=== PATIENT | female | born 1935 | race Caucasian/White ===

== ENCOUNTER 2017-08-24 21:07 | Inpatient (IN) | payer OTHER ==
[~2017-08-24] VITALS: Ht 170.2 cm; Wt 62.6 kg
--- OUTSIDE RECORDS SUMMARY | 2017-08-24 21:09 | XMS REPORT | Clinical Summary ---
Author Author [facility] Address Unknown Phone Unavailable Care Team Providers Care Steam Conditioning Operator Name Role Phone Robin Miranda MD PCP Allergies Active Allergy Reactions Severity Noted Date Comments Coenzyme Q10 Rash High 08/14/2015 Fish Oil 08/14/2015 Inhaled Anesthetics 08/14/2015 (Halogen Based) Isoniazid 08/14/2015 Lisinopril 08/14/2015 Current Medications Prescription Sig. Disp. Refills Start End Date Status Date aspirin (ECOTRIN) 325 MG Take 1 tablet(s) every Active enteric coated tablet day by oral route. atorvastatin (LIPITOR) 40 Take 1 tablet(s) every Active MG tablet day by oral route. Pp-N1-pfn-vdmf-vai-lpuc-b one daily Active oron (CALTRATE 600+D PLUS MINERALS) 600 mg calcium- 800 unit-40 mg tablet,chewable vigzbade-vxcujsz-yorf-lut 1 tablet daily Active ein (CENTRUM SILVER ULTRA WOMEN'S) tablet cholecalciferol, vitamin Take by oral route. Active D3, (VITAMIN D3) 1,000 unit capsule esomeprazole (NexIUM) 40 Take 1 capsule(s) every Active MG capsule day by oral route. lancets (freestyle) 28 2 daily Active gauge misc levothyroxine sodium Take 1 capsule(s) every Active (TIROSINT) 100 mcg day by oral route. capsule telmisartan (MICARDIS) 80 Take 1 tablet(s) every Active MG tablet day by oral route. cyanocobalamin, vitamin 2 mL. Active B-12, 1,000 mcg/mL kit blood sugar diagnostic 2 daily 200 strip 10 06/22/19 Active strips (FREESTYLE LITE 17 STRIPS) strip test strips estrogens, conjugated, Take 0.45 mg by mouth Active (PREMARIN) 0.45 MG tablet daily. metFORMIN (GLUCOPHAGE) Take 1 tablet (500 mg 180 tablet 1 07/04/19 Active 500 mg tablet total) by mouth 2 (two) 17 times a day. sitaGLIPtin (JANUVIA) 50 Take 1 tablet (50 mg 90 tablet 1 07/04/19 Active MG tablet total) by mouth daily. 17 insulin GLARGINE (LANTUS Inject 24 Units under the 10 pen 1 07/04/19 Active SOLOSTAR) 100 unit/mL skin nightly. 17 injection (pen) oxybutynin XL Take 5 mg by mouth daily. Active (DITROPAN-XL) 5 MG 24 hr tablet Active Problems Problem Noted Date Uncontrolled type 2 diabetes mellitus 08/14/2015 Vitamin D deficiency 08/14/2015 Encounters Date Type Specialty Care Team Description 02/15/2017 [facility] Radiology Bobby Miranda MD Encounter for screening Encounter mammogram for malignant neoplasm of breast 02/15/2017 Ancillary Access Bobby Miranda MD Encounter for screening Orders mammogram for malignant neoplasm of breast 02/03/2017 Transcribe Access Bobby Miranda MD Encounter for screening Orders mammogram for malignant neoplasm of breast (Primary Dx) 01/02/2017 Office Visit Endocrinology Alison Garay MD Uncontrolled diabetes mellitus type 2 without complications, 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); Vitamin D deficiency after 08/23/2016 Social History Tobacco Use Types Packs/Day Years Used Date Never Smoker Alcohol Use Drinks/Week oz/Week Comments Yes 2 Glasses of 1.2 rarely wine Sex Assigned at Date Recorded Not on file Last Filed Vital Signs Vital Sign Reading Time Taken Blood Pressure 101/66 01/02/2017 8:30 AM CDT Pulse 76 01/02/2017 8:30 AM CDT Temperature 36.4 C (97.5 F) 01/02/2017 8:30 AM CDT Respiratory Rate - - Oxygen Saturation 97% 01/02/2017 8:30 AM CDT Inhaled Oxygen - - Concentration Weight 63.5 kg (140 lb) 01/02/2017 8:30 AM CDT Height 166.4 cm (5' 5.5") 01/02/2017 8:30 AM CDT Body Mass Index 22.94 01/02/2017 8:30 AM CDT Plan of Treatment Health Maintenance Due Date Last Done Comments FOOT EXAM 1946 OPHTHALMOLOGY EXAM 1946 ZOSTER VACCINE 1996 PNEUMOCOCCAL 2001 POLYSACCHARIDE VACCINE AGE 65 AND OVER PNEUMOCOCCAL-13 2001 URINE MICROALBUMIN 07/04/2017 07/04/2016 INFLUENZA VACCINE 12/13/2017 Results * Mammo Screening w Cad Bilateral (02/15/2017 10:29 AM) Specimen Performing Laboratory [facility] [address] [place] [address] Narrative EXAMINATION: MAMMO SCREENING W CAD BILATERAL COMPARISON:07/06/2015-04/20/2012 TECHNIQUE: Bilateral digital screening mammography was performed and interpreted using computer-assisted detection. CLINICAL HISTORY: Screening mammogram.The patient has no current breast complaints.The patient reports current estrogen hormone replacement therapy use for the last 20 years FINDINGS: The breasts are heterogeneously dense, which may obscure small masses. There are stable benign-appearing calcified lesions in both breasts. There are vascular calcifications in both breasts. A scar marker overlies the left breast. No significant masses, calcifications, or other findings are seen in either breast.There has been no significant interval change. IMPRESSION: There is no mammographic evidence of malignancy. Recommend annual screening mammogram as per ACR guidelines and correlation with physical examination. BI-RADS 2:BENIGN This facility is accredited by the [employer] for Mammography. A negative x-ray report should not delay biopsy if a dominant or clinically suspicious mass is present.Not all cancers are identified by x-ray. DWS01 * POC glycosylated hemoglobin (Hb A1C) (01/02/2017 8:50 AM) Component Value Ref Range POC Hemoglobin A1C 6.1 % Specimen Performing Laboratory Blood after 08/23/2016 Insurance Payer Benefit Subscriber ID Type Phone Address Plan / Group [employer] xxxxxxxxxxx
[2017-08-24] MEDS ORDERED: SODIUM CHLORIDE 0.9% 500ML 500 ML IV STA (21:36)
[2017-08-24] MEDS ORDERED: ONDANSETRON HCL INJ 2 MG/ML VIAL IV STA (21:36)
[2017-08-24 21:57] LABS: BASOPHILS # (AUTO) 0.1 (0.0-0.1); BASOPHILS % 0.3 % (0.0-1.0); EOSINOPHILS % 0.2 % (0.0-6.0); HEMATOCRIT 42.8 % (34.2-44.1); HEMOGLOBIN 14.9 g/dL (12.0-16.0); LYMPHOCYTES # (AUTO) 1.8 (1.0-3.2); LYMPHOCYTES % 10.6 % (18.0-39.1); MEAN CORPUSCULAR HEMOGLOBIN 30.3 pg (28-32); MEAN CORPUSCULAR HGB CONC 34.8 g/dL (31-35); MEAN CORPUSCULAR VOLUME 87.2 fL (81-99); MONOCYTES # (AUTO) 0.7 (0.2-0.8); MONOCYTES % 3.8 % (4.4-11.3); NEUTROPHILS # (AUTO) 14.5 (2.1-6.9); NEUTROPHILS % 84.6 % (38.7-80.0); PLATELET COUNT 314 x10e3/uL (140-360); RED BLOOD COUNT 4.91 x10e6/uL (3.6-5.1); RED CELL DISTRIBUTION WIDTH 12.6 % (11.7-14.4)
[2017-08-24 21:58] LABS: CLARITY,URINE CLOUDY (CLEAR); COLOR,URINE YELLOW (YELLOW); KETONES,URINE TRACE (NEGATIVE); LEUKOCYTE ESTERASE ,URINE 2+ (NEGATIVE); NITRITE,URINE NEGATIVE (NEGATIVE); PROTEIN,URINE DIPSTICK TRACE (NEGATIVE)
[2017-08-24 21:59] LABS: BILIRUBIN,URINE NEGATIVE (NEGATIVE); URINE UROBILINOGEN 0.2 mg/dL (0.2 - 1)
[2017-08-24] MEDS ORDERED: DIATRIZOATE MEGL/DIATRIZOA SOD 30 ML BTL PO ONE (21:59)
[2017-08-24 22:09] LABS: BACTERIA,URINE MANY /HPF
[2017-08-24 22:10] LABS: AMORPHOUS SEDIMENT,URINE FEW (FEW)
[2017-08-24 22:13] LABS: ALANINE AMINOTRANSFERASE 22 IU/L (0-55); ALBUMIN 4.1 g/dL (3.5-5.0); ALKALINE PHOSPHATASE 87 IU/L (40-150); AMYLASE 51 U/L (25-125); ANION GAP 25.2 mmol/L (8-16); BLOOD UREA NITROGEN 9 mg/dL (7-26); BUN/CREATININE RATIO 8 (6-25); CALCIUM 10.6 mg/dL (8.4-10.2); CARBON DIOXIDE 15 mmol/L (22-29); CHLORIDE 98 mmol/L (98-107); CREATINE KINASE 55 IU/L (29-168); CREATININE, SERUM 1.18 mg/dL (0.57-1.11); EST GLOMERULAR FILTRATION RATE 44 ML/MIN (60-); GLUCOSE 214 mg/dL (74-118); LIPASE 17 U/L (8-78); POTASSIUM 4.2 mmol/L (3.5-5.1); SODIUM 134 mmol/L (136-145)
--- NOTE | 2017-08-24 22:16 | Diagnostic Imaging Report ---
EXAM: CHEST SINGLE (PORTABLE), AP 1 view INDICATION: Weakness, vomiting, abdominal pain COMPARISON: None FINDINGS: LINES/TUBES: None LUNGS: No consolidations or edema. PLEURA: No effusions or pneumothorax. HEART AND MEDIASTINUM: Normal size and contour. Median sternotomy wires and mediastinal clips. BONES AND SOFT TISSUES: No acute findings. Rounded fat density projected over the right hemithorax is likely a fat-containing Bochdalek hernia. Chronic deformity of the left proximal humerus. IMPRESSION: No acute thoracic abnormality. Signed by: Dr. Lisa Wolfe M.D. on 08/24/2017 10:12 PM
[2017-08-24] MEDS ORDERED: JANUVIA100 MG PO (22:21)
[2017-08-24] MEDS ORDERED: LANTUS 3ML100 UNITS/ SC (22:21)
[2017-08-24] MEDS ORDERED: ASPIRIN325 MG PO (22:21)
[2017-08-24] MEDS ORDERED: OXYBUTYNIN CHLOR5 M1 PO (22:21)
[2017-08-24] MEDS ORDERED: MICARDIS40 MG PO (22:21)
[2017-08-24] MEDS ORDERED: VITAMIN D1000 UNI1 PO (22:21)
[2017-08-24] MEDS ORDERED: SYNTHROID100 MCG PO (22:21)
[2017-08-24] MEDS ORDERED: ATORVASTATIN CA40 MG PO (22:21)
[2017-08-24] MEDS ORDERED: PREMARIN0.625 MG PO (22:21)
[2017-08-24] MEDS ORDERED: CENTRUM SILVER1 EAC3 PO (22:21)
[2017-08-24] MEDS ORDERED: CALTRATE PLUS1 EACH PO (22:21)
[2017-08-24] MEDS ORDERED: SODIUM CHLORIDE 0.9% 500ML 500 ML IV ONE (22:45)
[2017-08-24] MEDS ORDERED: SODIUM CHLORIDE 0.9% 50ML 50 ML ONE (22:51)
[2017-08-24] MEDS ORDERED: IOPAMIDOL 370 MG/ML 200 ML INFUS..BTL INJ ONE (22:52)
--- NOTE | 2017-08-24 23:34 | Diagnostic Imaging Report ---
EXAM: CT ABDOMEN AND PELVIS with IV CONTRAST DATE: 08/24/2017 9:36 PM Time stamp on Exam: 2300 hours INDICATION: Abdominal pain COMPARISON: None TECHNIQUE: The abdomen and pelvis were scanned using a multidetector helical scanner. Coronal and sagittal reformations were obtained. Routine protocol performed. IV Contrast: 100 cc Isovue-370 Oral Contrast: Gastrografin CTDIvol has been reviewed. It is below the limits set by the Radiation Protocol Committee (RPC). FINDINGS: LOWER THORAX: No consolidations. Left fat-containing Bochdalek hernia. LIVER: No masses BILIARY: The gallbladder is unremarkable. No ductal dilation. SPLEEN: No masses PANCREAS: No masses ADRENALS: No nodules KIDNEYS: Symmetric perfusion. No enhancing masses. No hydronephrosis. GI TRACT: No distention, wall thickening or evidence of obstruction. Small sliding hiatal hernia. Large amount of retained stool particularly in the rectosigmoid colon. The colon is very redundant with the cecum in the right upper quadrant of the abdomen. VESSELS: Mild PERITONEUM/RETROPERITONEUM: No free air or fluid LYMPH NODES: No lymphadenopathy REPRODUCTIVE ORGANS: The uterus and ovaries are not well visualized. BLADDER: Latham catheter and air within the bladder. Surgical clips anterior to the bladder. SOFT TISSUES: Unremarkable BONES: No suspicious bone lesions. IMPRESSION: Large amount of retained stool predominantly in the rectosigmoid colon. No evidence of bowel obstruction. Signed by: Dr. Lisa Wolfe M.D. on 08/24/2017 11:31 PM
[2017-08-25] VITALS (10 sets, daily range): BP systolic 81–109; BP diastolic 40–61
[2017-08-25] MEDS ORDERED: ONDANSETRON HCL INJ 2 MG/ML VIAL IV STA (00:03)
[2017-08-25] MEDS ORDERED: ONDANSETRON HCL INJ 2 MG/ML VIAL ONE (00:05)
--- OUTSIDE RECORDS SUMMARY | 2017-08-25 00:32 | XMS REPORT | Clinical Summary ---
Author Author [facility] Organization [facility] Address Unknown Phone Unavailable Care Team Providers Care Information Analyst Name Role Phone Robin Miranda MD PCP [...] Active MG tablet day by oral route. Sj-Z2-egb-tnxj-qdq-sgee-b one daily Active oron (CALTRATE 600+D PLUS MINERALS) 600 mg calcium- 800 unit-40 mg tablet,chewable lklcvbao-yuxawjm-zvtg-lut 1 tablet daily Active ein (CENTRUM SILVER [...] Date Type Specialty Care Team Description 02/15/2017 [facility] Radiology Bobby Miranda MD Encounter for screening Encounter mammogram for malignant neoplasm of breast 02/15/2017 Ancillary Access Bobby Miranda MD Encounter for screening Orders mammogram for malignant neoplasm of breast 02/03/2017 Transcribe Access Bobby Miranda MD Encounter for screening Orders mammogram for malignant neoplasm of breast (Primary Dx) 01/02/2017 Office Visit Endocrinology Alison Garay MD Uncontrolled diabetes mellitus type 2 without 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 A negative x-ray report should not delay biopsy if a dominant or clinically suspicious mass is present.Not all cancers are identified by x-ray. DWS01 * POC glycosylated hemoglobin (Hb A1C) (01/02/2017 8:50 AM) Component Value Ref Range POC Hemoglobin A1C 6.1 % Specimen Performing Laboratory Blood after 08/24/2016 Insurance Payer Benefit Subscriber ID Type Phone Address Plan / Group [facility] xxxxxxxxxxx
--- OUTSIDE RECORDS SUMMARY | 2017-08-25 00:32 | XMS REPORT ---
Author Author [facility] Address Unknown Phone Unavailable Care Team Providers Care Screen Handler Name Role Phone DANIEL BULLARD Unavailable Unavailable Problems This patient has no known problems. Allergies, Adverse Reactions, Alerts This patient has no known allergies or adverse reactions. Medications This patient has no known medications. Results Test Description Test Time Test Comments Text Results Atomic Results Result Comments CHEST SINGLE (PORTABLE) [place] [address] Patient Name: IDALMIS HURST MR #: [id number] : 1935 Age/Sex: 81/F Req #: [id number] Adm Physician: Ordered by: DANIEL BULLARD MD Report #: [id number] Location: ER Room/Bed: Procedure: [id number] DX/CHEST SINGLE (PORTABLE) Exam Date: 08/24/17 Exam Time: 2200 REPORT STATUS: Signed EXAM: CHEST SINGLE (PORTABLE), AP 1 view INDICATION: Weakness, vomiting, abdominal pain COMPARISON: None FINDINGS: LINES/TUBES: None LUNGS: No consolidations or edema. PLEURA: No effusions or pneumothorax. HEART AND MEDIASTINUM: Normal size and contour. Median sternotomy wires and mediastinal clips. BONES AND SOFT TISSUES: No acute findings. Rounded fat density projected over the right hemithorax is likely a fat-containing Bochdalek hernia. Chronic deformity of the left proximal humerus. IMPRESSION: No acute thoracic abnormality. Signed by: Dr. Juanjo Wolfe M.D. on 08/24/2017 10:12 PM Dictated By: JUANJO WOLFE MD 11 Transcribed By: CLEMENTE on 08/24/172211 COPY TO: DANIEL BULLARD MD CT ABDOMEN/PELVIS W [place] [address] Patient Name: IDALMIS HURST MR #: [id number] : 1935 Age/Sex: 81/F Req #: [id number] Adm Physician: Ordered by: DANIEL BULLARD MD Report #: [id number] Location: ER Room/Bed: Procedure: [id number] CT/CT ABDOMEN/PELVIS W Exam Date: 08/24/17 Exam Time: 2300 REPORT STATUS: Signed EXAM: CT ABDOMEN AND PELVIS with IV CONTRAST DATE: 08/24/2017 9:36 PM Time stamp on Exam: 2300 hours INDICATION: Abdominal pain COMPARISON: None TECHNIQUE: The abdomen and pelvis were scanned using a multidetector helical scanner. Coronal and sagittal reformations were obtained. Routine protocol performed. IV Contrast : 100 cc Isovue-370 Oral Contrast: Gastrografin CTDIvol has been reviewed. It is below the limits set by the Radiation Protocol Committee (RPC). FINDINGS: LOWER THORAX: No consolidations. Left fat-containing Bochdalek hernia. LIVER: No masses BILIARY: The gallbladder is unremarkable. No ductal dilation. SPLEEN: No masses PANCREAS: No masses ADRENALS: No nodules KIDNEYS: Symmetric perfusion. No enhancing masses. No hydronephrosis. GI TRACT: No distention, wall thickening or evidence of obstruction. Small sliding hiatal hernia. Large amount of retained stool particularly in the rectosigmoid colon. The colon is very redundant with the cecum in the right upper quadrant of the abdomen. VESSELS: Mild PERITONEUM/RETROPERITONEUM: No free air or fluid LYMPH NODES: No lymphadenopathy REPRODUCTIVE ORGANS: The uterus and ovaries are not well visualized. BLADDER: Latham catheter and air within the bladder. Surgical clips anterior to the bladder. SOFT TISSUES: Unremarkable BONES: No suspicious bone lesions. IMPRESSION: Large amount of retained stool predominantly in the rectosigmoid colon. No evidence of bowel obstruction. Signed by: Dr. Juanjo Wolfe M.D. on 08/24/2017 11:31 PM Dictated By: JUANJO WOLFE MD 2331 Transcribed By: CLEMENTE on 08/24/17 2331 COPY TO: DANIEL BULLARD MD
[2017-08-25] MEDS: SODIUM CHLORIDE 0.9% 1000ML 1,000 ML IV SCH ×3 (00:51→17:15)
[2017-08-25] MEDS: METRONIDAZOLE 500MG/NS 100ML 100 ML IV SCH ×4 (00:51→19:01)
[2017-08-25] MEDS: PIPER-TAZ 3.375 GM 3.375 GM/100 ML BAG IV SCH ×4 (02:10→22:34)
[2017-08-25] MEDS: ONDANSETRON HCL INJ 2 MG/ML VIAL IV PRN ×2 (06:35→14:10)
[2017-08-25] MEDS: INSULIN REGULAR, HUMAN 100 UNIT/1 ML 3ML VIAL SQ SCH ×4 (07:30→20:30)
[2017-08-25] MEDS ORDERED: ALBUTEROL/IPRATROPIUM 3 ML NEB ONE (10:48)
[2017-08-25] MEDS ORDERED: LACTULOSE SYRUP 20 GM/30 ML UDC PO PRN (14:45)
[2017-08-25] MEDS: INSULIN DETEMIR 100 UNIT/ML PEN SQ SCH ×2 (20:32→20:43)
[2017-08-25] MEDS: LACTULOSE SYRUP 20 GM/30 ML UDC PO SCH (20:39)
[2017-08-26] MEDS: SODIUM CHLORIDE 0.9% 1000ML 1,000 ML IV SCH ×4 (00:23→16:23)
[2017-08-26] MEDS: METRONIDAZOLE 500MG/NS 100ML 100 ML IV SCH ×4 (01:37→17:00)
[2017-08-26 04:23] VITALS: BP 88/44
[2017-08-26] MEDS: LEVOTHYROXINE SODIUM 100 MCG TAB PO SCH (06:08)
[2017-08-26 06:35] LABS: BASOPHILS # (AUTO) 0.1 (0.0-0.1); BASOPHILS % 0.5 % (0.0-1.0); EOSINOPHILS # (AUTO) 0.1 (0.0-0.4); EOSINOPHILS % 0.7 % (0.0-6.0); HEMATOCRIT 37.8 % (34.2-44.1); HEMOGLOBIN 12.2 g/dL (12.0-16.0); LYMPHOCYTES # (AUTO) 2.6 (1.0-3.2); MEAN CORPUSCULAR HEMOGLOBIN 30.3 pg (28-32); MEAN CORPUSCULAR HGB CONC 32.3 g/dL (31-35); MEAN CORPUSCULAR VOLUME 93.8 fL (81-99); MONOCYTES # (AUTO) 1.2 (0.2-0.8); MONOCYTES % 9.9 % (4.4-11.3); NEUTROPHILS # (AUTO) 8.2 (2.1-6.9); NEUTROPHILS % 67.6 % (38.7-80.0); PLATELET COUNT 194 x10e3/uL (140-360); RED BLOOD COUNT 4.03 x10e6/uL (3.6-5.1); RED CELL DISTRIBUTION WIDTH 13.8 % (11.7-14.4)
[2017-08-26] MEDS: PIPER-TAZ 3.375 GM 3.375 GM/100 ML BAG IV SCH ×3 (06:44→22:27)
[2017-08-26 06:49] LABS: ALBUMIN 2.9 g/dL (3.5-5.0); ANION GAP 14.7 mmol/L (8-16); CREATININE, SERUM 1.1 mg/dL (0.57-1.11)
[2017-08-26 07:00] VITALS: BP 97/45
[2017-08-26] MEDS: INSULIN REGULAR, HUMAN 100 UNIT/1 ML 3ML VIAL SQ SCH ×4 (07:30→20:50)
[2017-08-26 07:31] LABS: CALCIUM 7.6 mg/dL (8.4-10.2); POTASSIUM 2.7 mmol/L (3.5-5.1)
[2017-08-26] MEDS: LACTULOSE SYRUP 20 GM/30 ML UDC PO SCH ×2 (09:00→21:00)
[2017-08-26] MEDS: ESTROGEN PO SCH (09:00)
[2017-08-26] MEDS ORDERED: ESTROGENS CONJUGATED 0.625 MG TAB PO SCH (09:00)
[2017-08-26] MEDS ORDERED: POTASSIUM CHLORIDE 20MEQ/15ML UDC PO SCH (10:09)
[2017-08-26] MEDS: ASPIRIN 325 MG TAB PO SCH (10:21)
[2017-08-26] MEDS: CHOLECALCIFEROL 1,000 UNIT TAB PO SCH (10:21)
[2017-08-26] MEDS: OXYBUTYNIN CHLORIDE XL 5 MG TAB PO SCH (10:21)
[2017-08-26] MEDS: SITAGLIPTIN 100 MG TAB PO SCH (10:21)
[2017-08-26] MEDS: TELMISARTAN 40 MG TAB PO SCH (10:21)
[2017-08-26 10:53] VITALS: BP 97/45
[2017-08-26] MEDS: POTASSIUM CHLORIDE 20MEQ/15ML UDC NG SCH ×2 (12:18→14:50)
[2017-08-26] MEDS: POTASSIUM CHLORIDE 20MEQ/15ML UDC PO SCH ×5 (14:49→22:27)
[2017-08-26 16:33] VITALS: BP 98/50
[2017-08-26 20:00] VITALS: BP 92/65
[2017-08-26 20:57] VITALS: BP 92/65
[2017-08-26] MEDS: INSULIN DETEMIR 100 UNIT/ML PEN SQ SCH (21:00)
[2017-08-27] MEDS: METRONIDAZOLE 500MG/NS 100ML 100 ML IV SCH ×4 (00:10→17:01)
[2017-08-27] MEDS: POTASSIUM CHLORIDE 20MEQ/15ML UDC PO SCH (00:10)
[2017-08-27 00:39] VITALS: BP 88/46
[2017-08-27] MEDS: SODIUM CHLORIDE 0.9% 1000ML 1,000 ML IV SCH ×3 (03:55→16:23)
[2017-08-27 04:00] VITALS: BP 107/53
[2017-08-27] MEDS: PIPER-TAZ 3.375 GM 3.375 GM/100 ML BAG IV SCH ×3 (06:15→22:10)
[2017-08-27] MEDS: LEVOTHYROXINE SODIUM 100 MCG TAB PO SCH (06:15)
[2017-08-27 08:00] VITALS: BP 117/56
[2017-08-27] MEDS: LACTULOSE SYRUP 20 GM/30 ML UDC PO SCH ×2 (08:14→21:00)
[2017-08-27] MEDS: SITAGLIPTIN 100 MG TAB PO SCH (08:26)
[2017-08-27] MEDS: ASPIRIN 325 MG TAB PO SCH (08:26)
[2017-08-27] MEDS: OXYBUTYNIN CHLORIDE XL 5 MG TAB PO SCH (08:26)
[2017-08-27] MEDS: CHOLECALCIFEROL 1,000 UNIT TAB PO SCH (08:27)
[2017-08-27] MEDS: TELMISARTAN 40 MG TAB PO SCH (08:27)
[2017-08-27] MEDS: ESTROGEN PO SCH (08:27)
[2017-08-27] MEDS: INSULIN REGULAR, HUMAN 100 UNIT/1 ML 3ML VIAL SQ SCH ×5 (08:30→21:30)
[2017-08-27 12:00] VITALS: BP 105/58
[2017-08-27 12:57] LABS: BLOOD UREA NITROGEN 12 mg/dL (7-26); BUN/CREATININE RATIO 14 (6-25); CALCIUM 7.7 mg/dL (8.4-10.2); CARBON DIOXIDE 17 mmol/L (22-29); CHLORIDE 109 mmol/L (98-107); CREATININE, SERUM 0.87 mg/dL (0.57-1.11); EST GLOMERULAR FILTRATION RATE > 60 ML/MIN (60-); GLUCOSE 148 mg/dL (74-118); SODIUM 133 mmol/L (136-145)
[2017-08-27 16:00] VITALS: BP 90/53
--- NOTE | 2017-08-27 16:07 | Consultation ---
DATE OF CONSULTATION: August 27, 2017 NEUROLOGY CONSULTATION HISTORY OF PRESENT ILLNESS: Ms. Zhou is an 81-year-old right hand dominant woman with past medical history significant for hyperlipidemia, diabetes mellitus type 2, and coronary artery disease, who presented to [facility] on August 24, 2017, with abdominal pain, nausea, and vomiting. The patient was admitted to [facility] for further evaluation and treatment of urinary tract infection and sepsis. During her hospitalization, the patient endorsed an unsteady gait with multiple falls. A neurology consultation was ordered for further evaluation. Ms. Zhou reports experiencing poor balance and an unsteady gait for the past 4 to 5 years. Due to her unsteady gait, the patient has experienced multiple falls with several of those falls resulting in fractures of different bones. The patient does not endorse dizziness. She does not report any lightheadedness or a vertiginous sensation. The patient endorses numbness over the soles and dorsa of both feet. She endorses tingling over the toes of both feet. Ms. Zhou is not certain if the numbness and tingling are constant or if they occur intermittently. Ms. Zhou refers to these symptoms as her "diabetic neuropathy." However, the patient has never been formally diagnosed with diabetic polyneuropathy. The patient does have a history of diabetes mellitus type 2. Her son, who is present at the bedside, reports her diabetes is well controlled. The patient does not endorse current or prior heavy alcohol use. The patient does not endorse prior treatment with chemotherapeutic agents. There is no known family history of neuromuscular disease. REVIEW OF SYSTEMS: Weight loss, decreased hearing especially of the left ear, abdominal pain, nausea, vomiting, inappropriate sadness and anxiety, urinary frequency, generalized weakness, numbness and tingling of the feet, impaired balance, and unsteady gait. Otherwise the 12-point review of systems is negative. PAST MEDICAL HISTORY: Hyperlipidemia, diabetes mellitus type 2, coronary artery disease, thyroid disease, prior history of migraines. PAST SURGICAL HISTORY: Three-vessel CABG, repair of fractured left ulna, repair of fractured nose, cholecystectomy, total vaginal hysterectomy, section, cataract surgery. HOSPITALIZATIONS: Surgeries and procedures as listed, childbirth times 5, multiple hospitalizations for falls. FAMILY HISTORY: The patient's paternal and maternal grandparents are . Their medical histories are unknown. The patient's father is . He had a history of pancreatic cancer and alcoholism. The patient's mother is . She had a history of atrial fibrillation, multiple strokes, and alcoholism. The patient has 1 brother who is . He had alcoholic cirrhosis and cancer. The patient's sister is . Ms. Zhou has 5 sons. The eldest son has diabetes mellitus. The second eldest son has diabetes mellitus, coronary artery disease status post myocardial infarction. Another son had alcoholic cirrhosis and is status post liver transplant. The remaining 2 sons are healthy. SOCIAL HISTORY: The patient is a . 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 The patient does not report current or prior tobacco or recreational drug use. Ms. Zhou rarely drinks a glass of wine. HOME MEDICATIONS: Aspirin 325 mg by mouth daily, atorvastatin 40 mg by mouth at bedtime daily, Caltrate 1 tab by mouth daily, vitamin D3 1000 units by mouth daily, Premarin 0.4 mg by mouth daily, Lantus 25 units subcutaneously at bedtime daily, levothyroxine 100 mcg by mouth every morning, multivitamin 1 tab by mouth daily, oxybutynin 5 mg by mouth daily, Januvia 50 mg by mouth daily, Micardis 80 mg by mouth daily. ALLERGIES: FISH OIL CAPSULES CAUSE RASH. MS. ZHOU HAS LISTED ALLERGIES TO COENZYME Q10, ISONIAZID, AND LISINOPRIL WELL. NO KNOWN FOOD ALLERGIES. NO KNOWN ALLERGY TO LATEX. NO KNOWN ALLERGY TO IODINE OR OTHER CONTRAST MATERIALS. PHYSICAL EXAMINATION: VITAL SIGNS: Height 67 inches, weight 138 lbs. BMI 21.6 kilograms per meter squared. BP 105/58 mmHg, pulse 62 beats per minute, respiratory rate 20 breaths per minute, oxygen saturation 100% on room air. GENERAL: The patient is awake and alert, does not appear distressed. HEENT: Normocephalic, atraumatic. Pupils are surgical. Moist mucous membranes. NECK: Supple. No appreciable thyromegaly. No appreciable carotid bruits. CARDIOVASCULAR: S1, S2. Regular rate and rhythm. No murmurs, rubs, or gallops. RESPIRATORY: Clear to auscultation bilaterally. No wheezes, rhonchi, or rales. EXTREMITIES: The skin is warm and dry. No clubbing, cyanosis, or edema. The posterior tibial and dorsalis pedis pulses are 2+ and symmetric. SKIN: No rashes or lesions. NEUROLOGIC Memory/Attention: The patient is awake and alert, oriented to person, place, time, and situation. Cranial Nerves: Cranial nerve I--Not tested. Cranial nerves II, III, IV, and --Pupils are surgical, extraocular movements intact, no nystagmus. Cranial nerve V--Sensation to light touch and pinprick is intact in the bilateral V1 through V3 distributions. Strength of the temporalis and masseter muscles is within normal limits. Cranial nerve VII--The face is symmetric as are all facial movements. Strength is within normal limits. Cranial nerve VIII--Hearing is diminished to finger rub bilaterally. Cranial nerves IX, X--The soft palate elevates equally and symmetrically. Cranial nerve XI--Normal strength of the bilateral sternocleidomastoid and trapezius muscles. Cranial nerve XII-The tongue protrudes midline and moves symmetrically from side to side. Strength: Bulk is normal, and strength is 5/5 in the bilateral deltoids, biceps, triceps, wrist flexors and extensors, finger flexors and extensors, intrinsic hand muscles, hip flexors, knee flexors and extensors, ankle dorsiflexion and plantarflexion, and intrinsic foot muscles. Tone is normal. DTRs: Deep tendon reflexes are 2+ and symmetric at the triceps, biceps, and brachial radialis. Deep tendon reflexes are absent and symmetric at the patellas and Achilles. Plantar responses are flexor bilaterally. Absent clonus. Sensation: Sensation is intact to light touch and pinprick in both arms and both legs. Vibratory sense is absent at the toes and ankles, diminished at the knees, intact at the fingers. Cerebellar: Jdfqlc-dtmo-rikxde and heel-wiseman movements are intact without dysmetria or other impairment. Rapid alternating movements are intact. Gait: Deferred. Speech: Spontaneous speech is normal without appreciable dysarthria or aphasia. Repetition is intact. Involuntary Movements: None. Pronator Drift: None. LABORATORY DATA: Serum glucoses over the past 24 hours have ranged from 71 to 149. Laboratory data for today, August 27, 2017, is pending. DIAGNOSTIC STUDIES: Chest x-ray August 24, 2017: No acute thoracic abnormality. Abdomen/pelvis CT August 24, 2017: Large amount of retained stool predominantly in the rectosigmoid colon. No evidence of bowel obstruction. ASSESSMENT AND PLAN: Ms. Zhou is an 81-year-old right hand dominant woman with past medical history significant for hypertension, diabetes mellitus type 2, and coronary artery disease, admitted to [facility] on August 24, 2017, with abdominal pain, nausea, and vomiting. During her hospitalization, the patient reported an unsteady gait with multiple falls. A neurology consultation was ordered for further evaluation. On neurological examination, the patient has absent deep tendon reflexes at the patellas and Achilles and absent sensation to vibration at the toes and ankles, diminished sensation to vibration at the knees, and intact sensation to vibration at the fingers. The patient's laboratory data and diagnostic studies have been reviewed and are documented above. Ms. Zhou's history and findings on neurological examination are compatible with a diagnosis of peripheral neuropathy. Given her history of diabetes mellitus, this is the most probable cause of her peripheral neuropathy. RECOMMENDATIONS: 1. Blood work will be ordered to evaluate for treatable causes of peripheral neuropathy. However, as stated above, the patient's peripheral neuropathy is probably secondary to diabetes mellitus, which is the most common cause of peripheral neuropathy in the [place]. 2. Physical therapy consultation will be ordered. 3. The patient endorses tingling over the toes. She reports the sensation is mild. Treatment with a neuropathic agent was briefly discussed with Ms. Zhou, but she does not wish to take any other medications at this time. 4. Defer treatment of the remaining medical comorbidities to the primary and other services. Thank you for this consultation. I will continue to follow this patient while she remains in the hospital. Time spent: 60 minutes. Job#: [id number] NICOLASA
[2017-08-27] MEDS: INSULIN DETEMIR 100 UNIT/ML PEN SQ SCH ×2 (21:30→22:10)
[2017-08-28] VITALS (8 sets, daily range): BP systolic 90–153; BP diastolic 51–70
[2017-08-28] MEDS: SODIUM CHLORIDE 0.9% 1000ML 1,000 ML IV SCH ×3 (00:23→16:23)
[2017-08-28] MEDS: METRONIDAZOLE 500MG/NS 100ML 100 ML IV SCH ×4 (02:09→18:17)
[2017-08-28] MEDS: PIPER-TAZ 3.375 GM 3.375 GM/100 ML BAG IV SCH ×3 (06:02→22:23)
[2017-08-28] MEDS: LEVOTHYROXINE SODIUM 100 MCG TAB PO SCH (06:02)
[2017-08-28] MEDS: INSULIN REGULAR, HUMAN 100 UNIT/1 ML 3ML VIAL SQ SCH ×4 (07:30→21:00)
[2017-08-28] MEDS: DEXTROSE 50% SYRINGE 50 ML IV PRN (07:36)
[2017-08-28] MEDS: TELMISARTAN 40 MG TAB PO SCH (08:30)
[2017-08-28] MEDS: CHOLECALCIFEROL 1,000 UNIT TAB PO SCH (08:46)
[2017-08-28] MEDS: ASPIRIN 325 MG TAB PO SCH (08:46)
[2017-08-28] MEDS: OXYBUTYNIN CHLORIDE XL 5 MG TAB PO SCH (08:46)
[2017-08-28] MEDS: SITAGLIPTIN 100 MG TAB PO SCH (08:46)
[2017-08-28] MEDS: LACTULOSE SYRUP 20 GM/30 ML UDC PO SCH ×2 (08:46→21:00)
[2017-08-28] MEDS: ESTROGEN PO SCH (08:47)
--- NOTE | 2017-08-28 09:08 | Consultation ---
DATE OF CONSULTATION: August 28, 2017 CHIEF COMPLAINT: Left ear problems and dizziness. HISTORY OF PRESENT ILLNESS: The patient is an 81-year-old white female who was admitted on August 25, 2017, for "not feeling normal". I have been asked to evaluate symptoms of dizziness and left ear symptoms. The patient has had 4-5 year history of dizziness described as a sensation of imbalance, which has resulted in multiple falls. She denies any spinning sensation in the form of vertigo. The imbalance is not associated with arising quickly. She cannot correlate it with any particular body position. She also has had 6-month history of left-sided ear discomfort and ear pressure. She denies any significant otalgia or otorrhea. She denies hearing changes. She states that her hearing is equal and symmetric bilaterally. She has had no previous ear surgery. She notes occasional popping of her left temporomandibular joint. She denies any throat symptoms. PAST MEDICAL HISTORY: Significant for insulin-dependent diabetes mellitus, hypothyroidism and hypertension. PAST SURGICAL HISTORY: , hysterectomy, cholecystectomy, and cataract extractions. ALLERGIES: FISH OIL CAPSULES. MEDICATIONS: At home include aspirin, atorvastatin, calcium, vitamin D, estrogen, insulin, levothyroxine, multivitamin, Oxybutynin, Januvia, and Micardis. SOCIAL HISTORY: She is a nonsmoker and a rare drinker. PHYSICAL EXAMINATION GENERAL: The patient is an elderly white female appearing her stated age. She is sitting in bed eating breakfast and in no apparent distress. HEENT: Examination of the ears bilaterally reveal normal ears AU. Face is symmetric. Nasal exam is clear. Oral cavity and oropharynx is normal. NECK: Supple with full range of motion. There is no palpable cervical lymphadenopathy. There is mild left TMJ tenderness. ASSESSMENT 1. Dizziness due to uncertain etiology: It does not appear related to an inner ear phenomenon as she does not experience vertiginous or spinning sensation. Consider neurologic or cardiovascular etiology. 2. Left ear discomfort due to uncertain etiology: Ear appears to be normal. Consider referred musculoskeletal etiology, such as temporomandibular joint syndrome. RECOMMENDATIONS 1. If the dizziness continues, recommend further neurologic and cardiovascular evaluation. 2. In the event that the left ear discomfort is caused by TMJ pathology, recommend soft diet, heat and further dental evaluation. The patient was instructed to follow up with me as an outpatient for further evaluation of the dizziness and ear problems, especially if they persist (or worsen). Job#: [id number] MARY ALICE BALDWIN
[2017-08-28] MEDS: INSULIN DETEMIR 100 UNIT/ML PEN SQ SCH (22:14)
[2017-08-29] MEDS: METRONIDAZOLE 500MG/NS 100ML 100 ML IV SCH ×3 (00:31→12:09)
[2017-08-29] MEDS: SODIUM CHLORIDE 0.9% 1000ML 1,000 ML IV SCH ×2 (00:31→00:32)
[2017-08-29 04:15] VITALS: BP 150/72
[2017-08-29] MEDS: PIPER-TAZ 3.375 GM 3.375 GM/100 ML BAG IV SCH (04:59)
[2017-08-29] MEDS: LEVOTHYROXINE SODIUM 100 MCG TAB PO SCH (06:51)
[2017-08-29] MEDS: DEXTROSE 50% SYRINGE 50 ML IV PRN (07:07)
[2017-08-29 07:25] VITALS: BP 156/67
[2017-08-29] MEDS: INSULIN REGULAR, HUMAN 100 UNIT/1 ML 3ML VIAL SQ SCH ×2 (07:25→11:30)
[2017-08-29 07:36] VITALS: BP 156/67
[2017-08-29] MEDS: ASPIRIN 325 MG TAB PO SCH (08:50)
[2017-08-29] MEDS: CHOLECALCIFEROL 1,000 UNIT TAB PO SCH (08:50)
[2017-08-29] MEDS: SITAGLIPTIN 100 MG TAB PO SCH (08:50)
[2017-08-29] MEDS: OXYBUTYNIN CHLORIDE XL 5 MG TAB PO SCH (08:50)
[2017-08-29] MEDS: ESTROGEN PO SCH (09:00)
[2017-08-29] MEDS ORDERED: TELMISARTAN 40 MG TAB PO SCH ×2 (09:00)
[2017-08-29] MEDS: LACTULOSE SYRUP 20 GM/30 ML UDC PO SCH (09:00)
[2017-08-29 11:45] VITALS: BP 169/74
[2017-08-29 11:51] VITALS: BP 142/78
== END 2017-08-29 14:47 | DRG 872 ==
LOC: ER 21:07 → ERHOLD 08-25 00:23 → EDBEDREQ 08-25 00:32 → IMCU 08-25 00:37 → MED/SURG3 08-26 15:04
DX: A41.9 Sepsis, unspecified organism (principal); E11.42 Type 2 diabetes mellitus with diabetic polyneuropathy; E86.0 Dehydration; N30.90 Cystitis, unspecified without hematuria; I10 Essential (primary) hypertension; I25.10 Atherosclerotic heart disease of native coronary artery without angina pectoris; Z95.1 Presence of aortocoronary bypass graft; R42 Dizziness and giddiness; H92.02 Otalgia, left ear; E78.5 Hyperlipidemia, unspecified; R26.81 Unsteadiness on feet
CPT/HCPCS: 36415; 51700; 71045; 74177; 80048; 80053; 81001; 82150; 82550; 82553; 82948; 83605; 83690; 84484; 85025; 87040; 87086; 87186; 93005; 96361; 99284; J2405; J2543; J7030; J7040; J7799; Q9967

== ENCOUNTER 2017-09-14 12:26 | Emergency (ER) | payer OTHER ==
[~2017-09-14] VITALS: Ht 170.2 cm; Wt 72.6 kg
[~2017-09-14 12:26] MED LIST: ASPIRIN325 MG PO; ATORVASTATIN CA40 MG PO; CALTRATE PLUS1 EACH PO; CENTRUM SILVER1 EAC3 PO; JANUVIA100 MG PO; LANTUS 3ML100 UNITS/ SC; MICARDIS40 MG PO; OXYBUTYNIN CHLOR5 M1 PO; PREMARIN0.625 MG PO; SYNTHROID100 MCG PO; VITAMIN D1000 UNI1 PO
--- OUTSIDE RECORDS SUMMARY | 2017-09-14 12:28 | XMS REPORT | Continuity of Care Document ---
Author Author [facility] Organization [facility] Address [address] [place] [address] Phone Unavailable Care Team Providers Care Paralegal Internship Name Role Phone TIANA CAMPO MD PCP Insurance Providers Guarantor Nanci Hurst Address [address] [place] [address] Payer Family Health Plan Policy Number [id number] Subscriber's Name NataliNanci Relationship 18 Self / Same As Patient Effective Date 02 Advance Directives Directive Response Recorded Date/Time Does the patient have an advance directive? No 08/25/17 2:01am If yes, is advance directive on file with [facility]? No 08/25/17 2:01am If not on file with [facility] will patient provide a copy? Yes 08/25/17 2:01am Do you have a Directive to Physician? No 08/24/17 11:26pm Do you have a Medical Power of Circulation Assistant? No 08/24/17 11:26pm Do you have an out of hospital Do Not Resuscitate Order? No 08/24/17 11:26pm Do you have any special needs we should be aware of? No 08/24/17 11:26pm Do you have a support person here with you today? Yes 08/24/17 11:26pm Did patient receive Notice of Privacy Practices? Yes 08/24/17 11:26pm Did patient receive patient rights and responsibilities? Yes 08/24/17 11:26pm Problems No problem information available. Medications Current Home Medications Medication Dose Units Route Directions Days Qty Instructions Start Date Aspirin 325 Mg Tablet 325 Mg Oral Daily 30 Tab Atorvastatin Calcium 40 Mg Tablet 40 Mg Oral Bedtime 30 Tab Calcium Carb/Vit D3/Minerals (Caltrate Plus Tablet) 1 Each Tablet 1 Tab Oral Daily Cholecalciferol (Vitamin D3) (Vitamin D) 1,000 Unit Tablet 1,000 Unit Oral Daily 30 Tab Estrogens Conjugated (Premarin) 0.625 Mg Tab 0.4 Mg Oral Daily 30 Tab Insulin Glargine (Lantus 3ML Pen) 100 Units/1 Ml Inj 25 Units Subcutaneously Bedtime Levothyroxine Sodium (Synthroid) 100 Mcg Tab 100 Mcg Oral Today At 6:00AM 30 Tab Mu-Vits-Min Th/Lycopene/Lutein (Centrum Silver Tablet) 1 Each Tablet 1 Tab Oral Daily Oxybutynin Chloride (Oxybutynin Chloride Er) 5 Mg Tab.er.24 5 Mg Oral Daily Sitagliptin Phosphate (Januvia) 100 Mg Tablet 50 Mg Oral Daily 30 Tab Telmisartan (Micardis) 40 Mg Tab 80 Mg Oral Daily 30 Tab Social History Social History Problem Response Recorded Date/Time Onset Date Status Hx Psychiatric Problems No 08/25/2017 2:01am Not Applicable Not Applicable Hx Eating Disorder No 08/25/2017 2:01am Not Applicable Not Applicable Hx Substance Use Disorder No 08/25/2017 2:01am Not Applicable Not Applicable Hx Depression No 08/25/2017 2:01am Not Applicable Not Applicable Hx Alcohol Use No 08/25/2017 2:01am Not Applicable Not Applicable Hx Substance Use Treatment No 08/25/2017 2:01am Not Applicable Not Applicable Hx Physical Abuse No 08/25/2017 2:01am Not Applicable Not Applicable Smoking Status Start Date Stop Date Never Smoker Hospital Discharge Instructions No hospital discharge instruction information available. Plan of Care Discharge Date 08/29/17 2:47pm Disposition [facility] Prescriptions See Medication Section Functional Status Query Response Date Recorded Assistive Devices None August 25, 2017 2:06am Ambulation Ability Independent August 25, 2017 2:06am Toileting Ability Minimum Assistance August 29, 2017 9:15am Allergies, Adverse Reactions, Alerts Allergen Type Severity Reaction Status Last Updated Lisinopril Allergy Intermediate BAD RASH Active 08/24/17 Isoniazid Adverse Reaction Mild ELEVATED LIVER ENZYMES Active 08/24/17 fish oil Allergy Mild RASH Active 08/24/17 COQ10 Allergy Mild RASH Active 08/24/17 Immunizations No immunization information available. Vital Signs Acute Vital Signs Vital Response Date/Time Temperature (Fahrenheit) 96.3 degrees F (97.6 - 99.5) 08/29/2017 11:45am Pulse Pulse Rate (adult) 66 bpm (60 - 90) 08/29/2017 11:45am Respiratory Rate 18 bpm (12 - 24) 08/29/2017 11:45am Blood Pressure 142/78 mm Hg 08/29/2017 11:51am Height 5 ft 7 in 08/24/2017 9:41pm Weight 138 lb 08/24/2017 9:41pm Body Mass Index 21.6 kg/m^2 08/25/2017 2:01am Results Laboratory Results Test Name Result Units Flags Reference Collection Date/Time Result Date/ Time Comments White Blood Count 12.20 x10e3/uL H 4.8-10.8 08/26/2017 5:57am 2017 6:37am Red Blood Count 4.03 x10e6/uL 3.6-5.1 08/26/2017 5:57am 08/26/2017 6: 37am Hemoglobin 12.2 g/dL 12.0-16.0 08/26/2017 5:57am 08/26/2017 6:37am Hematocrit 37.8 % 34.2-44.1 08/26/2017 5:57am 08/26/2017 6:37am Mean Corpuscular Volume 93.8 fL # 81-99 08/26/2017 5:57am 08/26/2017 6: 37am Mean Corpuscular Hemoglobin 30.3 pg 28-32 08/26/2017 5:57am 08/26/2017 6:37am Mean Corpuscular Hemoglobin Concent 32.3 g/dL 31-35 08/26/2017 5:57am 08/26/2017 6:37am Red Cell Distribution Width 13.8 % 11.7-14.4 08/26/2017 5:57am 2017 6:37am Platelet Count 194 x10e3/uL 140-360 08/26/2017 5:57am 08/26/2017 6: 37am Neutrophils (%) (Auto) 67.6 % 38.7-80.0 08/26/2017 5:57am 08/26/2017 6: 37am Lymphocytes (%) (Auto) 21.0 % 18.0-39.1 08/26/2017 5:57am 08/26/2017 6: 37am Monocytes (%) (Auto) 9.9 % 4.4-11.3 08/26/2017 5:57am 08/26/2017 6: 37am Eosinophils (%) (Auto) 0.7 % 0.0-6.0 08/26/2017 5:57am 08/26/2017 6: 37am Basophils (%) (Auto) 0.5 % 0.0-1.0 08/26/2017 5:57am 08/26/2017 6:37am IM GRANULOCYTES % 0.3 % 0.0-1.0 08/26/2017 5:57am 08/26/2017 6:37am Neutrophils # (Auto) 8.2 H 2.1-6.9 08/26/2017 5:57am 08/26/2017 6: 37am Lymphocytes # (Auto) 2.6 1.0-3.2 08/26/2017 5:57am 08/26/2017 6:37am Monocytes # (Auto) 1.2 H 0.2-0.8 08/26/2017 5:57am 08/26/2017 6:37am Eosinophils # (Auto) 0.1 0.0-0.4 08/26/2017 5:57am 08/26/2017 6:37am Basophils # (Auto) 0.1 0.0-0.1 08/26/2017 5:57am 08/26/2017 6:37am Absolute Immature Granulocyte (auto 0.04 x10e3/uL 0-0.1 08/26/2017 5: 57am 08/26/2017 6:37am Urine Color YELLOW YELLOW 08/24/2017 9:35pm 08/24/2017 9:59pm Urine Clarity CLOUDY H CLEAR 08/24/2017 9:35pm 08/24/2017 9:59pm Urine Specific [place] 1.015 1.010-1.025 08/24/2017 9:35pm 2017 9:59pm Urine pH 7 5 - 7 08/24/2017 9:35pm 08/24/2017 9:59pm Urine Leukocyte Esterase 2+ H NEGATIVE 08/24/2017 9:35pm 08/24/2017 9: 59pm Urine Nitrite NEGATIVE NEGATIVE 08/24/2017 9:35pm 08/24/2017 9:59pm Urine Protein TRACE H NEGATIVE 08/24/2017 9:35pm 08/24/2017 9:59pm Urine Glucose (UA) NEGATIVE NEGATIVE 08/24/2017 9:35pm 08/24/2017 9: 59pm Urine Ketones TRACE H NEGATIVE 08/24/2017 9:35pm 08/24/2017 9:59pm Urine Urobilinogen 0.2 mg/dL 0.2 - 1 08/24/2017 9:35pm 08/24/2017 9: 59pm Urine Bilirubin NEGATIVE NEGATIVE 08/24/2017 9:35pm 08/24/2017 9: 59pm Urine Blood NEGATIVE NEGATIVE 08/24/2017 9:35pm 08/24/2017 9:59pm Urine WBC 11-20 /HPF H 0-5 08/24/2017 9:35pm 08/24/2017 10:10pm Urine RBC NONE /HPF 0-5 08/24/2017 9:35pm 08/24/2017 10:10pm Urine Bacteria MANY /HPF H NONE 08/24/2017 9:35pm 08/24/2017 10:10pm Urine Epithelial Cells NONE /LPF NONE 08/24/2017 9:35pm 08/24/2017 10: 10pm Urine Amorphous Sediment FEW FEW 08/24/2017 9:35pm 08/24/2017 10: 10pm Sodium Level 133 mmol/L L 136-145 08/27/2017 12:15pm 08/27/2017 1:02pm Potassium Level 4.0 mmol/L # 3.5-5.1 08/27/2017 12:15pm 08/27/2017 1: 02pm Chloride Level 109 mmol/L H 98-107 08/27/2017 12:15pm 08/27/2017 1:02pm Carbon Dioxide Level 17 mmol/L L 22-29 08/27/2017 12:15pm 08/27/2017 1: 02pm Anion Gap 11.0 mmol/L 8-16 08/27/2017 12:15pm 08/27/2017 1:02pm Blood Urea Nitrogen 12 mg/dL 7-26 08/27/2017 12:15pm 08/27/2017 1:02pm Creatinine 0.87 mg/dL 0.57-1.11 08/27/2017 12:15pm 08/27/2017 1:02pm BUN/Creatinine Ratio 14 6-25 08/27/2017 12:15pm 08/27/2017 1:02pm Estimat Glomerular Filtration Rate > 60 ML/MIN 60- 08/27/2017 12:15pm 08/27/2017 1:02pm Ranges were taken from the National Kidney Disease Education Program and the National Kid[employer] Foundation literature. Reference ranges: 60 or greater: Normal 16-59 (for 3 consecutive months): Chronic kidney disease 15 or less: Kidney failure Glucose Level 148 mg/dL H 74-118 08/27/2017 12:15pm 08/27/2017 1:02pm Calcium Level 7.7 mg/dL L 8.4-10.2 08/27/2017 12:15pm 08/27/2017 1:02pm Bedside Glucose 120 mg/dL 70-120 08/29/2017 11:14am 08/29/2017 11:33am Meter ID: [id number] Lactic Acid Level 27.0 MG/DL H 4.5-19.8 08/24/2017 9:25pm 08/24/2017 10: 10pm Total Bilirubin 0.2 mg/dL 0.2-1.2 08/26/2017 5:57am 08/26/2017 7:31am Aspartate Amino Transf (AST/SGOT) 34 IU/L 5-34 08/26/2017 5:57am 2017 7:31am Alanine Aminotransferase (ALT/SGPT) 19 IU/L 0-55 08/26/2017 5:57am 7:31am Total Protein 5.7 g/dL # L 6.5-8.1 08/26/2017 5:57am 08/26/2017 7:31am This test has been rerun and double checked for accuracy. Albumin 2.9 g/dL L 3.5-5.0 08/26/2017 5:57am 08/26/2017 7:31am Globulin 2.8 g/dL 2.3-3.5 08/26/2017 5:57am 08/26/2017 7:31am Albumin/Globulin Ratio 1.0 0.8-2.0 08/26/2017 5:57am 08/26/2017 7: 31am Alkaline Phosphatase 52 IU/L 40-150 08/26/2017 5:57am 08/26/2017 7: 31am Creatine Kinase 55 IU/L 29-168 08/24/2017 9:25pm 08/24/2017 10:14pm Creatine Kinase MB 1.30 ng/mL 0-5.0 08/24/2017 9:25pm 08/24/2017 10: 22pm Troponin I < 0.001 ng/mL 0-0.300 08/24/2017 9:25pm 08/24/2017 10:22pm Amylase Level 51 U/L 25-125 08/24/2017 9:25pm 08/24/2017 10:14pm Lipase 17 U/L 8-78 08/24/2017 9:25pm 08/24/2017 10:14pm Microbiology Results Procedure Source Organism/Result Collection Date/Time Result Date/Time Result Status Urine Culture Urine,Catheterized STAPHYLOCOCCUS HAEMOLYTICUS 08/24/2017 9: 35pm 08/27/2017 12:21pm Final Blood Culture Blood NO GROWTH AFTER 72 HOURS 9:25pm 08/27/2017 10:35pm Preliminary Procedures Procedure Status Date Provider(s) Computed tomography of abdomen and pelvis with contrast Active 08/24/17 DANIEL BULLARD MD Encounters Encounter Location Arrival/Admit Date Discharge/Depart Date Attending Provider Discharged Inpatient [facility] 08/25/17 12:23am 2:47pm REGI HERRING MD
--- OUTSIDE RECORDS SUMMARY | 2017-09-14 12:28 | XMS REPORT | Clinical Summary ---
Author Author [facility] Organization [facility] Address Unknown Phone Unavailable Care Team Providers Care Lead Person Name Role Phone Robin Miranda MD PCP [...] Active MG tablet day by oral route. [id number] one daily Active oron (CALTRATE 600+D PLUS MINERALS) 600 mg calcium- 800 unit-40 mg tablet,chewable zssskcgf-htdqghc-oymd-lut 1 tablet daily Active ein (CENTRUM SILVER [...] Date Type Specialty Care Team Description 02/15/2017 [facility] Radiology Bobby Miranda MD Encounter for screening Encounter mammogram for malignant neoplasm of breast 02/15/2017 Ancillary Access Bobby Miranda MD Encounter for screening Orders mammogram for malignant neoplasm of breast 02/03/2017 Transcribe Access Bobby Miranda MD Encounter for screening Orders mammogram for malignant neoplasm of breast (Primary Dx) 01/02/2017 Office Visit Endocrinology Alison Garay MD Uncontrolled diabetes mellitus type 2 without complications, unspecified manager terminal insulin use status (Primary Dx); Vitamin D deficiency after 09/13/2016 Social History Tobacco Use Types Packs/Day Years [...] Comments FOOT EXAM 1946 OPHTHALMOLOGY EXAM 1946 SHINGRIX VACCINE (#1) 1986 ZOSTER VACCINE 1996 PNEUMOCOCCAL 2001 POLYSACCHARIDE VACCINE AGE 65 AND OVER PNEUMOCOCCAL-13 2001 URINE MICROALBUMIN 07/04/2017 07/04/2016 INFLUENZA VACCINE 12/13/2017 Results * Mammo Screening w Cad Bilateral (02/15/2017 10:29 AM) Specimen Performing Laboratory [facility] [address] [place] [address] Narrative EXAMINATION: MAMMO SCREENING W CAD BILATERAL [...] 2:BENIGN This facility is accredited by the [employer] for Mammography. A negative x-ray report should not delay biopsy if a dominant or clinically suspicious mass is present.Not all cancers are identified by x-ray. [id number] * POC glycosylated hemoglobin (Hb A1C) (01/02/2017 8:50 AM) Component Value Ref Range POC Hemoglobin A1C 6.1 % Specimen Performing Laboratory Blood after 09/13/2016 Insurance Payer Benefit Subscriber ID Type Phone Address Plan / Group [facility] xxxxxxxxxxx
[2017-09-14 13:04] LABS: BASOPHILS % 0.5 % (0.0-1.0); EOSINOPHILS # (AUTO) 0.1 (0.0-0.4); EOSINOPHILS % 1.9 % (0.0-6.0); HEMATOCRIT 38.4 % (34.2-44.1); HEMOGLOBIN 12.5 g/dL (12.0-16.0); LYMPHOCYTES # (AUTO) 1.2 (1.0-3.2); LYMPHOCYTES % 27.8 % (18.0-39.1); MEAN CORPUSCULAR HEMOGLOBIN 30.4 pg (28-32); MEAN CORPUSCULAR HGB CONC 32.6 g/dL (31-35); MEAN CORPUSCULAR VOLUME 93.4 fL (81-99); MONOCYTES # (AUTO) 0.6 (0.2-0.8); MONOCYTES % 13.7 % (4.4-11.3); NEUTROPHILS # (AUTO) 2.4 (2.1-6.9); NEUTROPHILS % 55.9 % (38.7-80.0); PLATELET COUNT 243 x10e3/uL (140-360); RED BLOOD COUNT 4.11 x10e6/uL (3.6-5.1); RED CELL DISTRIBUTION WIDTH 13.8 % (11.7-14.4)
[2017-09-14 13:15] LABS: INR 1.1; PROTHROMBIN TIME 13.4 seconds (11.9-14.5)
[2017-09-14 13:16] LABS: PARTIAL THROMBOPLASTIN TIME 27.6 seconds (23.8-35.5)
[2017-09-14 13:25] LABS: ALANINE AMINOTRANSFERASE 29 IU/L (0-55); ALBUMIN 3.3 g/dL (3.5-5.0); ALBUMIN/GLOBULIN RATIO 0.8 (0.8-2.0); ALKALINE PHOSPHATASE 126 IU/L (40-150); ANION GAP 13.8 mmol/L (8-16); BLOOD UREA NITROGEN 9 mg/dL (7-26); BUN/CREATININE RATIO 9 (6-25); CALCIUM 9.6 mg/dL (8.4-10.2); CARBON DIOXIDE 24 mmol/L (22-29); CHLORIDE 100 mmol/L (98-107); CREATINE KINASE 27 IU/L (29-168); CREATININE, SERUM 0.98 mg/dL (0.57-1.11); EST GLOMERULAR FILTRATION RATE 55 ML/MIN (60-); GLUCOSE 195 mg/dL (74-118); POTASSIUM 3.8 mmol/L (3.5-5.1); SODIUM 134 mmol/L (136-145)
--- NOTE | 2017-09-14 14:23 | Diagnostic Imaging Report ---
PROCEDURE: CT ABDOMEN AND PELVIS WITHOUT CONTRAST TECHNIQUE: The abdomen and pelvis were scanned utilizing a multidetector helical scanner from the diaphragm to the lesser trochanter without intravenous contrast. Coronal and sagittal multiplanar reformations were obtained. COMPARISON: 08/24/2017 INDICATIONS: LEFT SIDED FLANK PAIN FINDINGS: ABSENCE OF INTRAVENOUS CONTRAST DECREASES SENSITIVITY FOR DETECTION OF FOCAL LESIONS AND VASCULAR PATHOLOGY. LOWER THORAX: Bilateral lower lobe scarring and mild traction bronchiectasis, right greater than left. HEPATOBILIARY: Subcentimeter hypodensity in hepatic segment II (series 3, image 33) is probably a small cyst. The gallbladder is absent. No biliary ductal dilatation. SPLEEN: No splenomegaly. PANCREAS: No focal masses or ductal dilatation. ADRENALS: No adrenal nodules. KIDNEYS/URETERS: No hydronephrosis or solid mass lesions. 2 mm calcification in the interpolar region of the left kidney (series 3, image 58) may represent a small, nonobstructing stone or vascular calcification. No ureteral stones PELVIC ORGANS/BLADDER: The uterus is absent. PERITONEUM / RETROPERITONEUM: No free air or fluid. LYMPH NODES: No lymphadenopathy. VESSELS: Mild atherosclerotic calcification of the aorta and its branches. GI TRACT: There is a large amount of stool throughout the colon. No distention or wall thickening. Small hiatal hernia, unchanged. BONES AND SOFT TISSUES: Status post median sternotomy. Multilevel spondylosis of the thoracic and lumbar spine. Mild leftward curvature of the thoracolumbar spine. IMPRESSION: A 2 mm calcification in the left kidney may represent a small nonobstructing stone or vascular calcification. Otherwise no renal or ureteral stones. Dictated by: Reese Echols M.D. on 09/14/2017 at 14:24 Electronically approved by: Reese Echols M.D. on 09/14/2017 at 14:24
[2017-09-14 15:58] LABS: CLARITY,URINE CLOUDY (CLEAR); COLOR,URINE YELLOW (YELLOW); LEUKOCYTE ESTERASE ,URINE 1+ (NEGATIVE); NITRITE,URINE POSITIVE (NEGATIVE)
[2017-09-14 15:59] LABS: BILIRUBIN,URINE NEGATIVE (NEGATIVE); KETONES,URINE NEGATIVE (NEGATIVE); PROTEIN,URINE DIPSTICK NEGATIVE (NEGATIVE); URINE UROBILINOGEN 0.2 mg/dL (0.2 - 1)
[2017-09-14 16:12] LABS: BACTERIA,URINE MANY /HPF; EPITHELIAL CELLS,URINE RARE /LPF; YEAST,URINE MODERATE
[2017-09-14 16:37] VITALS: BP 111/68
== END 2017-09-14 17:16 | disposition home or self-care (01) ==
LOC: ER 12:26
CPT/HCPCS: 36415; 74176; 80053; 81001; 82550; 82553; 83880; 84484; 85025; 85610; 85730; 99284